=== PATIENT | male | born 2000 | race Caucasian/White ===

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

== ENCOUNTER 2018-04-29 08:39 | Emergency (ER) | payer BC, OTHER ==
[~2018-04-29] VITALS: Ht 188 cm; Wt 79.5 kg
[2018-04-29] MEDS ORDERED: NS 1,000 ML IV ONE (09:15)
--- NOTE | 2018-04-29 09:59 | REP ---
CT Head without contrast HISTORY: Syncope COMPARISON: None There is no intraparenchymal hemorrhage, acute infarct, mass or midline shift. The ventricular system is normal in appearance. There is no extra cerebral collection. There is no fracture. No mucosal thickening is present in the ethmoid and left sphenoid sinuses. IMPRESSION: There is no intracranial lesion. Electronically Signed by Kevan Jameson MD 04/29/2018 09:52 A
[2018-04-29 10:00] LABS: BASO % 0.3 % (0.0-1.0); EOS % 0.4 % (0.0-3.0); HEMATOCRIT 43.5 % (42.0-52.0); HEMOGLOBIN 15.3 g/dl (13.5-17.5); LYMPH # 1.4 10^3/uL (1.5-6.5); LYMPH % 19.4 % (24.0-44.0); MEAN CORPUSCULAR HEMOGLOBIN 29.3 pg (27.0-33.0); MEAN CORPUSCULAR HGB CONC 35.2 g/dl (32.0-36.5); MEAN CORPUSCULAR VOLUME 83.3 fl (80.0-96.0); MONO # 0.6 10^3/uL (0.0-0.8); MONO % 8.8 % (0.0-5.0); NEUTROPHILS # 4.9 10^3/uL (1.8-7.7); PLATELET COUNT, AUTOMATED 184 10^3/uL (150-450); RED BLOOD COUNT 5.22 10^6/uL (4.30-6.10)
--- NOTE | 2018-04-29 10:01 | REP ---
Chest two views HISTORY: Syncope Comparison: None The lungs are clear. The heart is normal in size. The pulmonary vasculature is normal in appearance. The bony structure is intact. IMPRESSION: No acute disease. Electronically Signed by Kevan Jameson MD 04/29/2018 09:53 A
[2018-04-29 10:27] LABS: BLOOD UREA NITROGEN 9 MG/DL (7-18); CALCIUM LEVEL 8.9 MG/DL (8.5-10.1); CARBON DIOXIDE LEVEL 29 MEQ/L (21-32); CHLORIDE LEVEL 105 MEQ/L (98-107); CPK CREATINE PHOSPHOKINASE 146 U/L (39-308); CREATININE FOR GFR 1.12 MG/DL (0.70-1.30); FREE T4 1.16 NG/DL (0.78-1.33); GLUCOSE, FASTING 77 MG/DL (70-100); MB/CK RELATIVE INDEX 0.82 (< OR =4); SODIUM LEVEL 140 MEQ/L (136-145); TROPONIN I < 0.02 NG/ML (< 0.10)
[2018-04-29 11:16] VITALS: BP 121/65
--- NOTE | 2018-04-29 13:48 | ECGEPIP ---
Stationary ECG Study [facility] - ED Test Date: 2018-04-29 Pat Name: SHARI HERNANDEZ Department: Room: - Gender: M [employer] Video Director: : 2000 Requested By: NACHO Chavez PA-C Order Number: [id number] Reading MD: Keli Branch Measurements Intervals [place] Rate: 60 P: 10 IN: 126 QRS: 71 QRSD: 109 T: 52 QT: 393 QTc: 393 Interpretive Statements SINUS RHYTHM PROBABLE EARLY REPOLARIZATION, CLINICAL CORRELATION NO PRIOR FOR COMPARISON Electronically Signed On 04-29-2018 13:48:09 EST by Keli Branch
== END 2018-04-29 11:29 | disposition home or self-care (01) ==
LOC: M ED 08:39
DX: R55 Syncope and collapse (principal)

== ENCOUNTER → 2018-07-30 | Outpatient (REF) | payer OTHER | LOC: M WUC 12:27 | PROVIDERS: ATTEND Physician Assistant | DX: J06.9 Acute upper respiratory infection, unspecified (principal) ==

== ENCOUNTER 2021-09-07 16:18 | Emergency (ER) | payer OTHER ==
[~2021-09-07] VITALS: Ht 190.5 cm; Wt 90.4 kg
[2021-09-07 16:19] VITALS: BP 139/73
== END 2021-09-07 18:11 | disposition home or self-care (01) ==
LOC: M ED 16:18
DX: S39.012A Strain of muscle, fascia and tendon of lower back, initial encounter (principal); X58.XXXA Exposure to other specified factors, initial encounter; Y92.89 Other specified places as the place of occurrence of the external cause

== ENCOUNTER → 2024-02-13 | Outpatient (CLI) | payer OTHER | LOC: M WUC 12:46 | PROVIDERS: ATTEND Student in an Organized Health Care Education/Training Program | DX: M25.571 Pain in right ankle and joints of right foot (principal) ==

== ENCOUNTER 2024-05-16 18:48 | Inpatient (IN) | payer OTHER ==
[~2024-05-16] VITALS: Ht 190.5 cm; Wt 85.6 kg
[2024-05-16] MEDS: fentaNYL 100 MCG/2 ML INJECTION IV PRN (19:08)
[2024-05-16 19:32] LABS: BASO % 0.3 % (0.0-1.0); EOS # 0.1 10^3/uL (0.0-0.5); EOS % 0.5 % (0.0-3.0); HEMATOCRIT 42.7 % (42.0-52.0); HEMOGLOBIN 14.8 g/dl (13.5-17.5); LYMPH # 2.5 10^3/uL (1.5-5.0); MEAN CORPUSCULAR HEMOGLOBIN 30.4 pg (27.0-33.0); MEAN CORPUSCULAR HGB CONC 34.7 g/dl (32.0-36.5); MEAN CORPUSCULAR VOLUME 87.7 fl (80.0-96.0); MONO # 0.8 10^3/uL (0.0-0.8); MONO % 6.8 % (2.0-8.0); NEUTROPHILS # 8.4 10^3/uL (1.5-8.5); NEUTROPHILS % 71.1 % (36.0-66.0); PLATELET COUNT, AUTOMATED 248 10^3/uL (150-450); RED BLOOD COUNT 4.87 10^6/uL (4.30-6.10); WHITE BLOOD COUNT 11.8 10^3/uL (4.0-10.0)
[2024-05-16 19:36] LABS: BLOOD UREA NITROGEN 15 MG/DL (9-23); CALCIUM LEVEL 9.6 MG/DL (8.5-10.1); CARBON DIOXIDE LEVEL 29 MMOL/L (20-31); CHLORIDE LEVEL 99 MMOL/L (98-107); CREATININE FOR GFR 1.08 MG/DL (0.70-1.30); GLOMERULAR FILTRATION RATE > 60.0 (>60); GLUCOSE, FASTING 91 MG/DL (60-100); POTASSIUM SERUM 3.9 MMOL/L (3.5-5.1); SODIUM LEVEL 140 MMOL/L (136-145)
[2024-05-16 19:47] LABS: CPK CREATINE PHOSPHOKINASE 455 U/L (46-171)
[2024-05-16] MEDS: NS (Normal Saline) 0.9% 1,000 ML IV ONE (19:56)
[2024-05-16] MEDS: KETOROLAC 30 MG/ML 1ML VIAL IV ONE (20:34)
[2024-05-17] MEDS ORDERED: MOM 30ML SUSPENSION UDC PO PRN (03:00)
[2024-05-17] MEDS ORDERED: ACETAMINOPHEN 325 MG TAB PO PRN (03:00)
[2024-05-17] MEDS ORDERED: NORCO, ANEXSIA 5/325MG TABLET (HYDROcodone/ACETAMINOPHEN) PO PRN (03:00)
[2024-05-17] MEDS ORDERED: KETOROLAC 30 MG/ML 1ML VIAL IV PRN ×2 (03:00→07:45)
[2024-05-17] MEDS ORDERED: HOME MED LIST COMPLETE! XX SCH (03:25)
[2024-05-17 03:46] VITALS: BP 137/73
[2024-05-17 04:15] VITALS: TEMP 97.5; O2SAT 99
[2024-05-17 06:58] LABS: HEMATOCRIT 38.9 % (42.0-52.0); HEMOGLOBIN 13.5 g/dl (13.5-17.5); MEAN CORPUSCULAR HEMOGLOBIN 30.3 pg (27.0-33.0); MEAN CORPUSCULAR HGB CONC 34.7 g/dl (32.0-36.5); MEAN CORPUSCULAR VOLUME 87.2 fl (80.0-96.0); PLATELET COUNT, AUTOMATED 185 10^3/uL (150-450); RED BLOOD COUNT 4.46 10^6/uL (4.30-6.10); WHITE BLOOD COUNT 7.2 10^3/uL (4.0-10.0)
[2024-05-17 07:21] LABS: ALKALINE PHOSPHATASE 50 U/L (40-129); ALT/SGPT 22 U/L (7.0-40); AST/SGOT 37 U/L (<34); BILIRUBIN,TOTAL 0.8 MG/DL (0.3-1.2); BLOOD UREA NITROGEN 14 MG/DL (9-23); CALCIUM LEVEL 9.1 MG/DL (8.5-10.1); CARBON DIOXIDE LEVEL 30 MMOL/L (20-31); CHLORIDE LEVEL 103 MMOL/L (98-107); GLOMERULAR FILTRATION RATE > 60.0 (>60); GLUCOSE, FASTING 90 MG/DL (60-100); POTASSIUM SERUM 4.2 MMOL/L (3.5-5.1); SODIUM LEVEL 143 MMOL/L (136-145); TOTAL PROTEIN 6.8 G/DL (5.7-8.2)
[2024-05-17] MEDS: GABAPENTIN 100 MG CAP PO SCH (08:31)
[2024-05-17] MEDS: CYCLOBENZAPRINE 5MG TABLET PO SCH (08:31)
[2024-05-17] MEDS: KETOROLAC 30 MG/ML 1ML VIAL IV SCH (08:31)
[2024-05-17 12:00] VITALS: TEMP 97.2; O2SAT 97
[2024-05-17] MEDS ORDERED: IBUP-1022 PO (12:08)
[2024-05-17] MEDS ORDERED: ACET-683 PO (12:08)
[2024-05-17] MEDS: ACETAMINOPHEN 500 MG TAB PO SCH (12:09)
== END 2024-05-17 12:40 | disposition home or self-care (01) | DRG 384 ==
LOC: EDBD 18:48 → M ED 18:48 → M ED INP 05-17 02:58 → M MS5PR 05-17 04:09
PROVIDERS: ADMIT Student in an Organized Health Care Education/Training Program; ATTEND Student in an Organized Health Care Education/Training Program
DX: S80.11XA Contusion of right lower leg, initial encounter (principal); Y99.0 Civilian activity done for income or pay; V09.09XA Pedestrian injured in nontraffic accident involving other motor vehicles, initial encounter; Y93.89 Activity, other specified; Y92.410 Unspecified street and highway as the place of occurrence of the external cause